=== PATIENT | male | born 1980 | race Caucasian/White ===

== ENCOUNTER 2017-02-27 20:07 | Inpatient (IN) ==
[2017-02-27 20:36] LABS: MANUAL DIFF NEEDED? NO
[2017-02-27 20:39] LABS: BASO% 0.4 % (0.0-0.8); EOS# 0.39 X1000 (0.0-0.7); HEMATOCRIT 41.8 % (42.0-52.0); HEMOGLOBIN 13.7 g/dL (14.0-18.0); IMM GRAN# 0.11 X1000 (0.0-0.04); IMM GRAN% 0.6 % (0.0-0.5); LYMPH# 2.95 X1000 (1.2-3.4); LYMPH% 14.9 % (20.5-51.1); MCH 29.6 PG (27-31); MCHC 32.8 g/dL (33-37); MCV 90.3 FL (81-99); MONO# 1.35 X1000 (0.11-0.59); MONO% 6.8 % (1.7-9.3); MPV 10.9 FL (7.4-10.4); NEUT% 75.3 % (42.2-75.2); PLT 267 X1000 (130-400); RBC 4.63 XMIL (4.7-6.1)
[2017-02-27 20:46] LABS: INR 0.99; PROTIME 10.4 Seconds (9.2-11.7); PTT 24.7 Seconds (22.0-36.0)
[2017-02-27 20:58] LABS: AGAP 10; ALBUMIN 3.6 g/dL (3.5-5.0); ALKALINE PHOSPHATASE 55 U/L (32-122); BUN 24 mg/dL (8-22); CALCIUM 9.3 mg/dL (8.8-10.2); CHLORIDE 100 mmol/L (98-107); CK PROFILE 90 U/L (24-204); COSMO 281; GOT 39 U/L (10-34); GPT 46 U/L (10-44); MAGNESIUM 1.9 mg/dL (1.5-2.7); POTASSIUM 4.5 mmol/L (3.5-5.1); SODIUM 138 mmol/L (136-145); TCO2 28 mmol/L (25-35); TOTAL BILIRUBIN 0.93 mg/dL (0.20-1.00)
[2017-02-27 22:15] LABS: URINE SOURCE VOIDED
[2017-02-27 22:26] LABS: BILIRUBIN URINE NEGATIVE (NEGATIVE); BLOOD URINE NEGATIVE (NEGATIVE); CLARITY CLEAR (CLEAR); COLOR YELLOW; GLUCOSE URINE NEGATIVE (NEGATIVE); LEUKOCYTES URINE NEGATIVE (NEGATIVE); NITRITE URINE NEGATIVE (NEGATIVE); PH URINE 5.5; PROTEIN URINE NEGATIVE (NEGATIVE); SP GRAVITY URINE 1.015; UROBILINOGEN URINE 0.2 EU/dL (0.2-1.0)
[2017-02-27 22:32] LABS: UR AMPHETAMINES QUAL NONE DETECTED (NONE DETECT); UR BARBITUATES QUAL NONE DETECTED (NONE DETECT); UR BENZODIAZEPIN QUAL NONE DETECTED (NONE DETECT); UR CANNABINOIDS QUAL NONE DETECTED (NONE DETECT); UR COCAINE QUAL NONE DETECTED (NONE DETECT); UR METHADONE QUAL NONE DETECTED (NONE DETECT); UR OPIATES QUAL NONE DETECTED (NONE DETECT); UR OXYCODONE QUAL NONE DETECTED (NONE DETECT); UR PCP QUAL NONE DETECTED (NONE DETECT)
[2017-02-27 22:36] LABS: URINE EPITHELIAL CELLS <10 /HPF (<10); URINE RBC <10 /HPF (<10); URINE WBC <10 /HPF (<10)
[2017-02-27] MEDS ORDERED: ROCEPHIN 2 GM/NS 2 GM/50 ML IVPB IV ONE (23:42)
[2017-02-27] MEDS ORDERED: NITROGLYCERIN TOP ONE (23:51)
[2017-02-28] MEDS ORDERED: LOPRESSOR IV ONE (00:02)
--- NOTE | 2017-02-28 00:48 | PROVIDER DOCUMENTATION ---
This chart was entered by Juana Yu Scribe, acting as scribe for Michele Jackson CRNP. HPI-Respiratory General - General Chief Complaint: Shortness of Breath Stated Complaint: SOB Time Seen by Provider: 02/27/17 22:07 Source: patient Allergies/Adverse Reactions: Patient Allergies Allergy/AdvReac Type Severity Reaction Status Date / Time No Known Allergies Allergy Verified 04/14/15 16:09 Home Medications: Home Medication List Medication Instructions Recorded Confirmed Last Taken Type Indomethacin 50 mg PO TID #30 capsule 04/14/15 Unknown Rx Methylprednisolone [Medrol Dosepak] 4 mg PO DIRECTED #1 package 04/14/15 Unknown Rx Omeprazole [Prilosec] 20 mg PO DAILY@0700 #20 capsule 04/14/15 Unknown Rx - History of Present Illness-Resp Nature of Presenting Problem: 36 year old M presents to the ED with a cc of intermittent SOB with an onset of 2 week ago. PT states that he is short of breath with exertion. PT states that he has had some chest tightness with the shortness of breath but denies tightness at this time. PT states that he was sent from [facility] with an abnormal EKG. PT states that he was seen 2 weeks ago and diagnosed with walking pneumonia and placed on antibiotics. Pt states that his blood pressure has been high for years and runs around 180 systolic. Quality of Pain: reports: aching Severity in ED: reports: mild Onset/Duration: reports: other (4 weeks) Timing: reports: intermittent Modifying Factors: worse with: exertion Associated Symptoms: reports: chest pain/soreness, shortness of breath Similar Symptoms Previously?: No Recently seen or treated by another doctor?: No Review of Systems - Adult - REVIEW OF SYSTEMS - ADULT Constitutional: denies: chills, fever Eyes: reports: no symptoms reported Ears, Nose, Mouth & Throat: reports: no symptoms reported Cardiovascular: reports: chest pain. denies: palpitations Respiratory: reports: dyspnea on exertion, shortness of breath. denies: cough Gastrointestinal: denies: nausea, vomiting Genitourinary: reports: no symptoms reported Musculoskeletal: reports: no symptoms reported Integumentary: reports: no symptoms reported Neurological: reports: no symptoms reported Psychiatric: reports: no symptoms reported Endocrine: reports: no symptoms reported Hematologic/Lymphatic: reports: no symptoms reported Allergic/Immunologic: reports: no symptoms reported All Other Systems: Reviewed and Negative Past History - Adult - PAST MEDICAL HISTORY-ADULT Review of Records: reports: Nursing Assessment Review, Medications Reviewed Major Childhood Illnesses: reports: denies history Cardiovascular: reports: denies history Respiratory: reports: denies history Gastrointestinal: reports: denies history Obstetrical/Gynecological: reports: denies history Genitourinary: reports: denies history Musculoskeletal: reports: arthritis (gout) Neurological: reports: denies history Endocrine/Immune: reports: denies history Other Conditions: reports: denies history - PRIOR SURGERIES/PROCEDURES Surgical/Procedure History: reports: tonsillectomy - IMMUNIZATION STATUS Childhood Immunizations: See Nurse Assessment Flu Vaccine: See Nurse Assessment - FAMILY HISTORY Family History: reviewed, not pertinent - SOCIAL HISTORY Smoking: cigarettes Provider spent 3-5 mins advising pt. on dangers of tobacco.: Discussed manners to quit use, and f/u contacts for add'l counseling. Substance Use: none/never Alcohol Use Frequency: occasionally Physical Exam-General - PHYSICAL EXAM-ADULT Initial Vital Signs Reviewed: Yes - CONSTITUTIONAL General Appearance: alert, mild distress, anxious - RESPIRATORY Respiratory: chest non-tender, lungs clear, normal breath sounds, increased rate - CARDIOVASCULAR Cardiovascular: normal peripheral pulses, regular rate, rhythm, no edema - GASTROINTESTINAL (ABDOMEN) Abdominal Exam: non tender, soft - SKIN Integumentary: normal color, normal turgor, warm/dry - PSYCHIATRIC Psych/Mental Status: normal mood/affect, normal thought content, normal thought process, oriented x 3 Progress - PLAN OF CARE/RESULTS Progress/Plan/Lab Results: Vital Signs - 8 hr 02/27/17 20:21 02/27/17 22:48 02/28/17 00:19 Temperature 98.2 F Pulse Rate 118 H 115 H 119 H Respiratory Rate 20 22 24 Blood Pressure 183/125 228/157 216/157 O2 Sat by Pulse Oximetry 93 L 96 02/28/17 00:46 Temperature Pulse Rate 103 H Respiratory Rate 18 Blood Pressure 195/144 O2 Sat by Pulse Oximetry 100 Laboratory Results - last 24 hr 02/27/17 02/27/17 02/27/17 20:20 20:20 20:20 WBC 19.85 H RBC 4.63 L Hgb 13.7 L Hct 41.8 L MCV 90.3 MCH 29.6 MCHC 32.8 L RDW Std Deviation 14.0 Plt Count 267 MPV 10.9 H Immature Gran % (Auto) 0.6 H Neut % (Auto) 75.3 H Lymph % (Auto) 14.9 L [place] % (Auto) 6.8 Eos % (Auto) 2.0 Baso % (Auto) 0.4 Immature Gran # (Auto) 0.11 H Neut # (Auto) 14.97 H Lymph # (Auto) 2.95 [place] # (Auto) 1.35 H Eos # (Auto) 0.39 Baso # (Auto) 0.08 PT INR PTT (Actin FS) D-Dimer 0.32 Sodium 138 Potassium 4.5 Chloride 100 Carbon Dioxide 28 Anion Gap 10 BUN 24 H Creatinine 1.2 Estimated GFR/1.73 m2 > 60 BUN/Creatinine Ratio 20 Glucose 125 H Calculated Osmolality 281 Calcium 9.3 Magnesium 1.9 Total Bilirubin 0.93 AST 39 H ALT 46 H Alkaline Phosphatase 55 Creatine Kinase 90 Troponin T Plf-Z-Eiknbxhdltn Pept Total Protein 6.0 L Albumin 3.6 Globulin 2.4 Albumin/Globulin Ratio 1.5 Urine Source Urine Color Urine Clarity Urine Turbidity Urine pH Ur Specific [place] Urine Protein Ur Glucose (Stick) Urine Ketones Ur Ketones (Stick) Urine Blood Urine Nitrite Urine Bilirubin Urine Urobilinogen Urobilinogen Dipstick Urine Leukocytes Urine WBC (Auto) Urine RBC (Auto) U Epithel Cells (Auto) Urine Bacteria (Auto) Urine Microscopic RBC Urine WBC Urine Microscopic WBC Ur Epithelial Cells Urine Glucose Urine Opiates Screen Ur Oxycodone Screen Ur Methadone, Qual Ur Barbiturates Screen Ur Phencyclidine Scrn Ur Amphetamines Screen U Benzodiazepines Scrn Urine Cocaine Screen U Cannabinoids Screen 02/27/17 02/27/17 02/27/17 20:20 20:20 20:20 WBC RBC Hgb Hct MCV MCH MCHC RDW Std Deviation Plt Count MPV Immature Gran % (Auto) Neut % (Auto) Lymph % (Auto) [place] % (Auto) Eos % (Auto) Baso % (Auto) Immature Gran # (Auto) Neut # (Auto) Lymph # (Auto) [place] # (Auto) Eos # (Auto) Baso # (Auto) PT 10.4 INR 0.99 PTT (Actin FS) 24.7 D-Dimer Sodium Potassium Chloride Carbon Dioxide Anion Gap BUN Creatinine Estimated GFR/1.73 m2 BUN/Creatinine Ratio Glucose Calculated Osmolality Calcium Magnesium Total Bilirubin AST ALT Alkaline Phosphatase Creatine Kinase Troponin T 0.140 H [id number]-B-Hjvyjtjwgdu Pept 2092 H Total Protein Albumin Globulin Albumin/Globulin Ratio Urine Source Urine Color Urine Clarity Urine Turbidity Urine pH Ur Specific [place] Urine Protein Ur Glucose (Stick) Urine Ketones Ur Ketones (Stick) Urine Blood Urine Nitrite Urine Bilirubin Urine Urobilinogen Urobilinogen Dipstick Urine Leukocytes Urine WBC (Auto) Urine RBC (Auto) U Epithel Cells (Auto) Urine Bacteria (Auto) Urine Microscopic RBC Urine WBC Urine Microscopic WBC Ur Epithelial Cells Urine Glucose Urine Opiates Screen Ur Oxycodone Screen Ur Methadone, Qual Ur Barbiturates Screen Ur Phencyclidine Scrn Ur Amphetamines Screen U Benzodiazepines Scrn Urine Cocaine Screen U Cannabinoids Screen 02/27/17 02/27/17 02/27/17 21:50 21:50 22:00 WBC RBC Hgb Hct MCV MCH MCHC RDW Std Deviation Plt Count MPV Immature Gran % (Auto) Neut % (Auto) Lymph % (Auto) [place] % (Auto) Eos % (Auto) Baso % (Auto) Immature Gran # (Auto) Neut # (Auto) Lymph # (Auto) [place] # (Auto) Eos # (Auto) Baso # (Auto) PT INR PTT (Actin FS) D-Dimer Sodium Potassium Chloride Carbon Dioxide Anion Gap BUN Creatinine Estimated GFR/1.73 m2 BUN/Creatinine Ratio Glucose Calculated Osmolality Calcium Magnesium Total Bilirubin AST ALT Alkaline Phosphatase Creatine Kinase Troponin T Fab-E-Chiqvyogkdq Pept Total Protein Albumin Globulin Albumin/Globulin Ratio Urine Source Cancelled VOIDED Urine Color Cancelled YELLOW Urine Clarity CLEAR Urine Turbidity Cancelled Urine pH Cancelled 5.5 Ur Specific [place] Cancelled 1.015 Urine Protein Cancelled NEGATIVE Ur Glucose (Stick) Cancelled Urine Ketones NEGATIVE Ur Ketones (Stick) Cancelled Urine Blood Cancelled NEGATIVE Urine Nitrite Cancelled NEGATIVE Urine Bilirubin Cancelled NEGATIVE Urine Urobilinogen 0.2 Urobilinogen Dipstick Cancelled Urine Leukocytes Cancelled Urine WBC (Auto) Cancelled Urine RBC (Auto) Cancelled U Epithel Cells (Auto) Cancelled Urine Bacteria (Auto) Cancelled Urine Microscopic RBC <10 Urine WBC NEGATIVE Urine Microscopic WBC <10 Ur Epithelial Cells <10 Urine Glucose NEGATIVE Urine Opiates Screen NONE DETECTED Ur Oxycodone Screen NONE DETECTED Ur Methadone, Qual NONE DETECTED Ur Barbiturates Screen NONE DETECTED Ur Phencyclidine Scrn NONE DETECTED Ur Amphetamines Screen NONE DETECTED U Benzodiazepines Scrn NONE DETECTED Urine Cocaine Screen NONE DETECTED U Cannabinoids Screen NONE DETECTED 02/27/17 02/27/17 22:24 22:24 WBC RBC Hgb Hct MCV MCH MCHC RDW Std Deviation Plt Count MPV Immature Gran % (Auto) Neut % (Auto) Lymph % (Auto) [place] % (Auto) Eos % (Auto) Baso % (Auto) Immature Gran # (Auto) Neut # (Auto) Lymph # (Auto) [place] # (Auto) Eos # (Auto) Baso # (Auto) PT INR PTT (Actin FS) D-Dimer Sodium Potassium Chloride Carbon Dioxide Anion Gap BUN Creatinine Estimated GFR/1.73 m2 BUN/Creatinine Ratio Glucose Calculated Osmolality Calcium Magnesium Total Bilirubin AST ALT Alkaline Phosphatase Creatine Kinase 89 Troponin T 0.128 H Ywe-Y-Gsakcmxqbkq Pept Total Protein Albumin Globulin Albumin/Globulin Ratio Urine Source Urine Color Urine Clarity Urine Turbidity Urine pH Ur Specific [place] Urine Protein Ur Glucose (Stick) Urine Ketones Ur Ketones (Stick) Urine Blood Urine Nitrite Urine Bilirubin Urine Urobilinogen Urobilinogen Dipstick Urine Leukocytes Urine WBC (Auto) Urine RBC (Auto) U Epithel Cells (Auto) Urine Bacteria (Auto) Urine Microscopic RBC Urine WBC Urine Microscopic WBC Ur Epithelial Cells Urine Glucose Urine Opiates Screen Ur Oxycodone Screen Ur Methadone, Qual Ur Barbiturates Screen Ur Phencyclidine Scrn Ur Amphetamines Screen U Benzodiazepines Scrn Urine Cocaine Screen U Cannabinoids Screen Orders Category Date Time Status CHEST-2 VIEWS [RAD] Stat Exams 02/27/17 22:20 Taken BLOOD CULTURE [BLDCUL] Stat Lab 02/28/17 00:05 Ordered CBC WITH ELECTRONIC DIFF [HEME] Stat Lab 02/27/17 20:20 Completed CK PROFILE [SP CHEM] Stat Lab 02/27/17 20:20 Completed CK PROFILE [SP CHEM] Stat Lab 02/27/17 22:24 Completed COMPREHENSIVE METABOLIC PANEL [CHEM] Stat Lab 02/27/17 20:20 Completed D-DIMER [CHEM] Stat Lab 02/27/17 20:20 Completed MAGNESIUM [CHEM] Stat Lab 02/27/17 20:20 Completed PRO B-NATRIURETIC PEPTIDE Stat Lab 02/27/17 20:20 Completed PROTIME WITH INR [COAG] Stat Lab 02/27/17 20:20 Completed PTT [COAG] Stat Lab 02/27/17 20:20 Completed TROPONIN T Stat Lab 02/27/17 20:20 Completed TROPONIN T Stat Lab 02/27/17 22:24 Completed UDS [URINE DRUG SCREEN] Stat Lab 02/27/17 21:50 Completed CefTRIAXONE 2 GM/NS [Rocephin 2 gm/Ns] Med 02/27/17 23:42 Discontinued 2 gm in 50 ml IV NOW Metoprolol [Lopressor] Med 02/28/17 00:02 Discontinued 5 mg IV NOW ONE Nitroglycerin Med 02/27/17 23:51 Discontinued 1 inch TOP NOW ONE EKG [EKG] Stat Ther 02/27/17 20:20 Ordered EKG [EKG] Stat Ther 02/27/17 22:19 Ordered Result Diagrams: 02/27/17 20:20 02/27/17 20:20 - EKG 1 Time of EKG reading by physician:: 20:17 EKG Read and Signed by:: Hever Adams EKG Interpretation (*Must complete 3 of following elements*): Abnormal Rate: 118 Rhythm: Sinus tachycardia [place]: normal Comments: biatrial enlargement 2 Time of EKG reading by physician:: 22:27 EKG Read and Signed by:: Hever Adams EKG Interpretation (*Must complete 3 of following elements*): Abnormal Rate: 117 Rhythm: sinus tachycardia [place]: normal Comments: biatrial enlargement - XRAY 1 XRAY Study: Chest Impression: Abnormal XRAY Interpretation: cardiomegally, elevated right hemidiaphragm: Dr Adams( ER MD) - CONSULTS/PCP/HOSPITALIST Notification #1 *Consult/PCP/Hospitalist*: Dr. Ackerman(hypercil core transformer assembler) Time Discussed: 23:41 Reason/Comments: elevated troponin Consult Disposition: Admit (admit to hospitalist and schedule an echo in the morning) #2 Consult: Dr. Welch(hospitalist) Time Discussed: 23:48 Consult Disposition: Will see in ED, Admit Departure - Departure Time of Disposition Decision: 00:15 DIAGNOSIS: Chest pain Qualifiers: Chest pain type: chest pain due to myocardial ischemia Ischemic chest pain type : unstable angina pectoris Qualified Code(s): I20.0 - Unstable angina CHF (congestive heart failure) Qualifiers: Congestive heart failure type: unspecified congestive heart failure type Congestive heart failure chronicity: acute Qualified Code(s): I50.9 - Heart failure, unspecified Pneumonia Qualifiers: Pneumonia type: due to unspecified organism Laterality: right Lung location: unspecified part of lung Qualified Code(s): J18.9 - Pneumonia, unspecified organism Disposition: ADMITTED INPATIENT 09 Certified Medical Emergency: Emergent Condition: Stable Referrals and Follow-Ups: None,PCP [Primary Care Provider] - Attestation - Physician/ SKY Attestation Patient care was provided by Advanced Practice Provider:: Yes Advanced Practice Provider:: Michele Jackson Advanced Practice Provider documentation review:: The Mid-level provider documentation, treatment plan and medical decision making was reviewed by the physician who agrees with all treatment and medical decision making by the MLP. This chart was documented by the indicated scribe, (Juana Yu Scribe) and accurately reflects the services I performed and decisions made by Manuel minaya Joseph A., CRNP, as attested by the provider's signature.
[2017-02-28] MEDS ORDERED: LASIX IV ONE (01:01)
[2017-02-28] MEDS ORDERED: LABETALOL IV ONE (01:03)
[2017-02-28] MEDS ORDERED: LABETALOL IV PRN (01:03)
[2017-02-28] MEDS ORDERED: TYLENOL PO PRN (01:05)
[2017-02-28] MEDS ORDERED: ZOFRAN IV PRN (01:05)
[2017-02-28] MEDS ORDERED: NITROGLYCERIN TOP SCH (01:15)
[2017-02-28] MEDS ORDERED: LOVENOX SUBQ SCH (01:15)
--- NOTE | 2017-02-28 05:09 | HISTORY AND PHYSICAL ---
CHIEF COMPLAINT: Shortness of breath. HISTORY OF PRESENT ILLNESS: This is a 36-year-old male with a past medical history of schizophrenia who presented to the emergency room tonight with chest tightness and shortness of breath with exertion. He denied overt chest pain but he said that it did hurt when it was tight related to the shortness of breath. He had been recently treated for "walking pneumonia" with antibiotics from [facility]. He states that he has had high blood pressure for years with a systolic blood pressure of 180 or greater but does not take any medications. He had laboratory data done in the emergency room and was noted to have an elevated white blood cell count with a white blood cell count of 19.85. However, he stated that he just had completed a Medrol Dosepak. This is possibly the cause of the leukocytosis. A chest x-ray was obtained which showed cardiomegaly and an elevated right hemidiaphragm. He does not appear to have an infectious source at this time. However, his blood pressure in the emergency room has been as high as 228/157. He will be admitted for further evaluation and treatment. PAST MEDICAL HISTORY: Schizophrenia, hypertension untreated with a systolic blood pressure usually of 180 or greater. PREVIOUS SURGICAL HISTORY: Tonsillectomy. SOCIAL HISTORY: Lives alone half of the month, keeps his son every other week. He is disabled related to his schizophrenia. Smokes 1 pack of cigarettes per day. Smoking cessation was gone over with the patient. He does not want to quit. He denies alcohol or illicit drug use or abuse. FAMILY HISTORY: Mother has lymphoma cancer. Father has had a myocardial infarction and has hypertension. REVIEW OF SYSTEMS: Fourteen point review of systems conducted with the patient. Pertinent positives listed above in the HPI. All other systems were reviewed and are negative. HOME MEDICATIONS: Nursing to reconcile list in computer for me. PHYSICAL EXAMINATION: VITAL SIGNS: Temperature 98.2 degrees, pulse 103-120, sinus tachycardia. Blood pressure as high as 228/157. Oxygen saturation 96% on room air. GENERAL: Pleasant, 36-year-old male lying on the ER stretcher. No acute distress. Answers all questions appropriately. HEENT: Head is atraumatic, normocephalic. Pupils equal, round, reactive to light. Extraocular eye movement intact. Sclerae are anicteric. Conjunctivae are pink. Oral mucosa is moist. NECK: Supple. No JVD. No thyromegaly. Trachea is midline. No cervical lymphadenopathy. CARDIAC: Regular rhythm. Sinus tachycardia on monitor. S1 and S2 appreciated. No murmurs, gallops, rubs. LUNGS: Clear to auscultation bilaterally. No rhonchi, wheezes, or rales. Symmetrical rise and fall with respirations. ABDOMEN: Soft, nondistended, nontender. Bowel sounds present in all 4 quadrants, normoactive. No pulsatile mass. No organomegaly. EXTREMITIES: No clubbing or cyanosis. There is 1+ pitting lower extremity edema. There are 2+ pedal pulses bilaterally. GENITOURINARY: Patient voids, otherwise deferred. NEUROLOGICAL: Alert and oriented x3. Cranial nerves 2-12 grossly intact. DIAGNOSTIC DATA: Chest x-ray shows cardiomegaly and elevated right hemidiaphragm. LABORATORY DATA: WBC 19.85, hemoglobin 13.7, hematocrit 41.8, platelet count 267,000. Coagulations within normal limits. D-dimer 0.32. Sodium 138, potassium 4.5, chloride 100, carbon dioxide 28, BUN 24, creatinine 1.2, and glucose 125. AST 39, ALT 46. Troponin 0.14. Upon recheck was 0.128. ProBNP 2092. Urine unremarkable. Toxicology screen is negative. ASSESSMENT AND PLAN: 1. Uncontrolled hypertension. Placed a nitroglycerin patch on patient in the emergency room, 1 inch topically. Gave labetalol 20 mg intravenous, will repeat every 4 hours as needed. I gave Lasix 40 mg intravenous x1 dose in the emergency room. 2. Gout. The patient is on indomethacin and has received a Medrol Dosepak recently. 3. Leukocytosis of unclear etiology. There does not appear to be an infectious process going on. He did receive 2 g of Rocephin in the emergency room. Blood cultures have been obtained. The patient also appears to have a chronically elevated WBC as he had another white blood cell count that was over 15,000 two years ago. We will monitor this but will not give additional antibiotics at this time. 4. Transaminitis. This could be related to differentials. 5. Schizophrenia. Patient says that he takes medication for this. However, was not listed in his home medications. However, a list has not been fully reconciled by the nurses. An order has been placed for nursing to reconcile home medications. 6. Tobacco use. Smoking cessation gone over with the patient. He does not want to quit at this time. Patient seen and examined. Agree with HENRRY note. It reflects my assessment and plan. It is important to remark that this patient is being admitted for uncontrolled hypertension but unfortunately while in the E.R. patient did not received ANY medication to try to lower blood pressure but instead we were called for admission. Dictated by HENRRY Bender for Mani Fragoso MD cc: HENRRY Bender MD MTDD
--- NOTE | 2017-02-28 05:22 | EKG Report ---
Test Performed on : 02/27/2017 8:17:51 PM Test Reason : CP Blood Pressure : / mmHG Vent. Rate : 118 BPM Atrial Rate : 118 BPM P-R Int : 132 ms QRS Dur : 088 ms QT Int : 336 ms P-R-T Axes : 060 025 057 degrees QTc Int : 470 ms Sinus tachycardia. Biatrial enlargement Abnormal ECG No previous ECGs available Unconfirmed Result
--- NOTE | 2017-02-28 05:22 | EKG Report ---
Test Performed on : 02/27/2017 10:27:20 PM Test Reason : SOB Blood Pressure : / mmHG Vent. Rate : 117 BPM Atrial Rate : 117 BPM P-R Int : 132 ms QRS Dur : 088 ms QT Int : 330 ms P-R-T Axes : 054 013 056 degrees QTc Int : 460 ms Sinus tachycardia. Biatrial enlargement Abnormal ECG When compared with ECG of 27-FEB-2017 20:17, (Unconfirmed) No significant change was found Unconfirmed Result
[2017-02-28] MEDS ORDERED: PRILOSEC PO SCH (07:00)
--- NOTE | 2017-02-28 08:19 | Diag Imaging Result Document ---
PROCEDURE NAME: CHEST-2 VIEWS - 02/27/2017 FRONTAL AND LATERAL CHEST, TWO VIEWS: FINDINGS: The lungs are well expanded. The right hemidiaphragm is elevated. The heart is enlarged. The vessels are not distended. No pneumonia. No pleural effusions. No free air beneath the diaphragm. IMPRESSION: Cardiomegaly.
[2017-02-28] MEDS ORDERED: ASPIRIN PO SCH (09:00)
[2017-02-28 09:29] VITALS: BP 188/135
--- NOTE | 2017-02-28 10:19 | Diag Imaging Result Document ---
PROCEDURE NAME: CT THORAX W/O CONTRAST - 02/28/2017 CT OF THE CHEST WITHOUT CONTRAST: FINDINGS: There is minimal atelectasis over the right hemidiaphragm. Possibility of mild bronchopneumonia cannot be excluded. There are small nodes in the mediastinum superiorly particularly in the prevascular space where there is 1 node measuring up to 17 mm. There are some fairly prominent right paratracheal and AP window nodes, some of which have her short axis exceeding 1 cm. There is a somewhat dense-appearing fluid in the pericardial recesses exceeding 14 Hounsfield units. Anterior to the right ventricle this measures only 5 mm in thickness. No acute abnormalities are demonstrated in the visualized portion of the abdomen. IMPRESSION: 1. Right lower lobe atelectasis versus pneumonia. 2. Mediastinal adenopathy. 3. Pericardial effusion which is slightly hyperdense suggesting the possibility of pericarditis with or without hemorrhage. The findings were discussed with Mimi Abreu at 0954 hours.
[2017-02-28] MEDS ORDERED: COLCRYS PO ONE (10:23)
[2017-02-28] MEDS ORDERED: MOTRIN PO SCH (13:00)
--- NOTE | 2017-02-28 13:42 | ECHO REPORT ---
ORDER DATE: 02/28/2017 MEASUREMENTS: 1. Left ventricular end diastolic diameter 4.3, end systolic diameter 3.4. 2. Posterior wall thickness 2.9. 3. Septal thickness 2.9. 4. Left atrium 4.8 SUMMARY OF 2D IMAGIN. Adequate quality acoustic windows. 2. Aortic, mitral, tricuspid, and pulmonic valves are without structural abnormality with mild mitral regurgitation, mild tricuspid regurgitation, and mild pulmonic insufficiency. The aortic root is normal in size. 3. Normal left ventricular chamber size with severe concentric left hypertrophy. Estimated left ventricular ejection fraction approximately 30% in the setting of global hypokinesis. Left atrium is moderately enlarged. Right atrium and right ventricle are of normal size with grossly preserved right ventricular systolic performance. 4. Small posterior pericardial effusion. 5. Appearance of inferior vena cava suggests normal central venous pressure. CONCLUSIONS: 1. Mild mitral regurgitation. 2. Mild tricuspid regurgitation. Estimated systolic PA pressure by Doppler is 50 mmHg. 3. Severe concentric left ventricular hypertrophy with estimated left ventricular ejection fraction of 30%. 4. Moderate left atrial enlargement. 5. Small posterior pericardial effusion. cc: MD Ramo Berg CRNP
--- NOTE | 2017-02-28 15:58 | CONSULTATION ---
DATE OF CONSULTATION: 02/28/2017 CHIEF COMPLAINT: Chest pain, shortness of breath. HISTORY: Sqgafl-xkta-kubv-old white male. HISTORY OF PRESENT ILLNESS: Patient presented to the Emergency Room complaining of shortness of breath and chest discomfort that started yesterday. This has been going on for two or three days. He went to [facility] yesterday, and they told him that he had a "walking pneumonia". His blood pressure was 228/157. The patient noted some sternal chest discomfort. The patient was really anxious and trying to leave the hospital; however, he agreed to stay for some testing. PAST MEDICAL HISTORY: His past history is positive for schizophrenia and hypertension. PREVIOUS SURGICAL HISTORY: Tonsillectomy. SOCIAL HISTORY: He is single. He is disabled. He smokes a pack a day for 15 years. He has not been using any alcohol or illicit drugs. FAMILY HISTORY: Mother had lymphoma. Father had hypertension, myocardial infarction. He is not allergic to any medication. HOME MEDICATIONS: Not reported. REVIEW OF SYSTEMS: His review of systems is noncontributory beyond on what I have already said. PHYSICAL EXAMINATION: Vital signs: Blood pressure 188/135, pulse 94, respirations 20, temperature 98.7. General: He is awake, alert, oriented, in no distress. HEENT: Unremarkable. Chest: Fairly clear to auscultation and percussion. Cardiac: Heart sounds are regular and rhythmic. No definite rub. No gallop. Abdomen: Obese. Extremities: No edema. Neurological exam: Moves four extremities. BLOOD WORK: Sodium 138, potassium 4.5, BUN 24, creatinine 1.2. Liver function tests normal. D- dimer is negative. Sedimentation rate 2. C-reactive protein borderline elevated. ProBNP 2092. Troponin levels 0.140, 0.128, 0.113. Electrocardiogram shows sinus tachycardia without any acute ischemic changes. There is no definite ST elevation. There is some atrial abnormality. That would be consistent with LVH. There is questionable UT depression in lead II. It is very subtle. A 2D echocardiogram has been done. It shows a very trivial pericardial effusion. Normal systolic function, ejection fraction of 55%. There is diastolic dysfunction. There is severe concentric LVH. A CT of the thorax has been done; it shows a pericardial effusion with some loculation at the level of the right atrium consistent with pericarditis. Possible infiltrate suggests a pneumonia. IMPRESSION: 1. Patient presenting with dyspnea and chest discomfort with elevation of troponin levels, abnormal EKG, abnormal echocardiogram, abnormal CT scan of the chest. Putting everything together, the patient may have a case of acute pleuropericarditis. 2. History of schizophrenia. 3. Long-term hypertension, poorly controlled. RECOMMENDATIONS: The patient has been advised to stay in the hospital for management. He has refused to stay in the hospital. He wants to leave against medical advice. We did the best to convey to him the necessity to treat him in the hospital. However, he decided to leave anyway. He will seek medical care outside. Thank you for opportunity to participate in his evaluation. cc: Wicho Ridley MD MTDD
== END 2017-02-28 10:41 | disposition left against medical advice (07) ==
LOC: ED 20:07 → SUATTDRO 02-28 02:09 → EDIPHOLD 02-28 02:09
PROVIDERS: ATTEND Internal Medicine

== ENCOUNTER 2019-07-31 13:41 | Observation (INO) ==
[2019-07-31] MEDS ORDERED: HUMULIN R IV ONE ×2 (13:53→19:03)
[2019-07-31] MEDS ORDERED: NS 1,000 ML IV ONE ×2 (13:53→15:35)
--- NOTE | 2019-07-31 14:12 | PROVIDER DOCUMENTATION ---
HPI-General Adult - General Chief Complaint: Abnormal Lab[s] Stated Complaint: ABNORMAL LAB Time Seen by Provider: 07/31/19 13:59 Source: patient Allergies/Adverse Reactions: Patient Allergies Allergy/AdvReac Type Severity Reaction Status Date / Time No Known Allergies Allergy Verified 07/31/19 15:29 Home Medications: Home Medication List Medication Instructions Recorded Confirmed Last Taken Type Carvedilol 1 tab PO BID 01/13/18 07/31/19 07/30/19 History Sacubitril/Valsartan [Entresto 49 1 each PO BID 01/13/18 07/31/19 07/30/19 History mg-51 mg Tablet] Spironolactone 1 tab PO DAILY 01/13/18 07/31/19 07/30/19 History Amoxicillin/Pot Clavulanate 1 tab PO BID 07/31/19 07/31/19 07/31/19 History [Augmentin] Lisdexamfetamine Dimesylate 1 tab PO DAILY 07/31/19 07/31/19 07/31/19 History [Vyvanse] Ondansetron [Zofran] 1 tab PO PRN PRN 07/31/19 07/31/19 07/31/19 History Benzonatate [Tessalon] 200 mg PO TID PRN PRN #15 cap 08/01/19 Unknown Rx Insulin Glargine,Hum.rec.anlog 15 unit SQ QAM #1 insuln.pen 08/01/19 Unknown Rx [Lantus Solostar] Metformin [Glucophage] 500 mg PO BID CC #90 tab 08/01/19 Unknown Rx - History of Present Illness -Gen Adult Nature of Presenting Problems: 39 YO M pmh for HTN presents from urgent care for abnormal labs, being glucose and sodium. He states he had been feeling sick for the past 2 weeks with increased thirst. He had been drinking two 2 liters of soda daily with a gallon of milk. He has an upset stomach with decreased appetite. He also c/o cough. Pt states when he first went to urgent care 2 weeks ago, they gave him abx but he did not improve. He went back on today and he was told he had abnormal labs and was sent here to the ED. For the past few days he had n/v but it has been improving. Denies dysuria, hematuria. He had BM today that was normal. He does not have a known hx of DM. Location of Pain/Injury: reports: none Quality of Pain: reports: none Onset/Duration: reports: 1 week ago Timing: reports: still present Modifying Factors: improves with: nothing Associated Symptoms: reports: cough, dizziness, nausea, weakness Similar Symptoms Previously?: Yes Recently seen or treated by another doctor?: Yes (seen at urgent care) - Diabetes Related Context Context: reports: high blood sugar Review of Systems - Adult - REVIEW OF SYSTEMS - ADULT Constitutional: reports: fatique. denies: fever Eyes: reports: no symptoms reported Ears, Nose, Mouth & Throat: reports: no symptoms reported Cardiovascular: denies: chest pain, edema, palpitations, syncope Respiratory: denies: cough, shortness of breath, wheezing Gastrointestinal: reports: nausea. denies: abdominal pain, vomiting Genitourinary: reports: frequency. denies: dysuria, flank pain Musculoskeletal: reports: no symptoms reported Integumentary: reports: no symptoms reported Neurological: denies: dizziness/vertigo, loss of balance, numbness, syncope Endocrine: reports: see HPI, increased thirst, polyuria. denies: change in skin pigment, excessive sweating Hematologic/Lymphatic: denies: blood clots, low blood count, prolonged bleeding Allergic/Immunologic: reports: no symptoms reported Past History - Adult - PAST MEDICAL HISTORY-ADULT Review of Records: reports: Old Records Reviewed, Nursing Assessment Review, Medications Reviewed Major Childhood Illnesses: reports: denies history Cardiovascular: reports: denies history Respiratory: reports: denies history Gastrointestinal: reports: denies history Obstetrical/Gynecological: reports: denies history Genitourinary: reports: denies history Musculoskeletal: reports: arthritis (gout) Neurological: reports: denies history Endocrine/Immune: reports: denies history Other Conditions: reports: denies history - PRIOR SURGERIES/PROCEDURES Surgical/Procedure History: reports: tonsillectomy - IMMUNIZATION STATUS Childhood Immunizations: See Nurse Assessment Flu Vaccine: See Nurse Assessment - FAMILY HISTORY Family History: reviewed, not pertinent - SOCIAL HISTORY Smoking: cigarettes Substance Use: denies Physical Exam-General - PHYSICAL EXAM-ADULT Initial Vital Signs Reviewed: Yes - CONSTITUTIONAL General Appearance: no apparent distress, obese - EYES Eyes: PERRL/EOMI, pink conjunctivae - HEAD, EARS, NOSE, MOUTH & THROAT HENMT: normocephalic/atraumatic, moist mucous membranes, other (missing teeth, poor dentition) - NECK Neck: full range of motion, supple - RESPIRATORY Respiratory: lungs clear, normal breath sounds, no respiratory distress, no accessory muscle use - CARDIOVASCULAR Cardiovascular: tachycardia - GASTROINTESTINAL (ABDOMEN) Abdominal Exam: soft. negative: distended, hernia, mass - MUSCULOSKELETAL Extremity: normal range of motion, normal gait, no pedal edema - SKIN Integumentary: warm/dry - NEUROLOGIC Neurologic: grossly normal, no motor/sensory deficits - PSYCHIATRIC Psych/Mental Status: normal mood/affect, oriented x 3 Progress - PLAN OF CARE/RESULTS Progress/Plan/Lab Results: Vital Signs - 8 hr 07/31/19 13:49 Temperature 98.5 F Pulse Rate 117 H Respiratory Rate 22 Blood Pressure 138/106 O2 Sat by Pulse Oximetry 96 Laboratory Results - last 24 hr 07/31/19 13:48 POC Glucose 358 H Orders Category Date Time Status Saline Loc NOW Care 07/31/19 13:52 Active A1C [A1C HGB W EST AVG GLUCOSE] [CHEM] Stat Lab 07/31/19 14:09 Ordered ACETONE SERUM [CHEM] Stat Lab 07/31/19 14:09 Ordered CBC WITH ELECTRONIC DIFF [HEME] Stat Lab 07/31/19 14:09 Ordered COMPREHENSIVE METABOLIC PANEL [CHEM] Stat Lab 07/31/19 14:09 Ordered URINALYSIS W/POSS RFLX CULT [URINALYSIS] Stat Lab 07/31/19 13:52 Uncollected 0.9% Sodium Chloride Inj [Ns] 1,000 ml Med 07/31/19 13:53 Active IV 999 mls/hr Insulin Human Regular [Humulin R] Med 07/31/19 13:53 Discontinued 10 unit IV NOW ONE Result Diagrams: 08/01/19 06:40 08/01/19 06:40 - REASSESSMENT Reassessment #1 Time Reassessed: 18:11 Status: unchanged (hospitalist paged at 1800) - EKG 1 Time of EKG reading by physician:: 15:45 EKG Read and Signed by:: Beata Garsia EKG Interpretation (*Must complete 3 of following elements*): Abnormal Rate: 99 Rhythm: NSR [place]: normal QRS: normal [place] Interval: normal (left atrial enlargement) Prior EKG Comparison: changes noted (improved from previous, Dec 2017) - CONSULTS/PCP/HOSPITALIST Notification #1 *Consult/PCP/Hospitalist*: Dr. Mcfarland Time Discussed: 18:18 Consult Disposition: Will see in ED Departure - Departure Date of Disposition Decision: 07/31/19 Time of Disposition Decision: 18:14 DIAGNOSIS: Hyperglycemia, Metabolic acidosis, increased anion gap, New onset type 2 diabetes mellitus Disposition: ADMITTED INPATIENT 09 Certified Medical Emergency: Emergent Condition: Stable - Critical Care Note This patient required my direct & personal management of CC.: No Attestation - Physician/ SKY Attestation The physician spent face to face time with patient:: Yes Advanced Practice Provider documentation review:: Supervising physician onsite and consulted in the evaluation and care of this patient. The physician did have a face to face encounter with the patient.
[2019-07-31 14:22] LABS: BASO# 0.12 X1000 (0.0-0.2); BASO% 0.7 % (0.0-0.8); EOS# 0.51 X1000 (0.0-0.7); HEMATOCRIT 48.1 % (42.0-52.0); HEMOGLOBIN 16.9 g/dL (14.0-18.0); IMM GRAN# 0.06 X1000 (0.0-0.04); IMM GRAN% 0.4 % (0.0-0.5); LYMPH# 3.48 X1000 (1.2-3.4); LYMPH% 20.4 % (20.5-51.1); MCH 29.2 PG (27-31); MCHC 35.1 g/dL (33-37); MCV 83.1 FL (81-99); MONO# 1.16 X1000 (0.11-0.59); MONO% 6.8 % (1.7-9.3); MPV 12.3 FL (7.4-10.4); NEUT# 11.73 X1000 (1.4-6.5); NEUT% 68.7 % (42.2-75.2); PLT 287 X1000 (130-400); RBC 5.79 XMIL (4.7-6.1); RDW 12.4 % (11.5-14.5); WBC 17.06 X1000 (4.8-10.8)
[2019-07-31 14:34] LABS: HEMOGLOBIN A1C 9.3 % (4.8-6.0)
[2019-07-31 14:37] LABS: ACETONE SERUM NEGATIVE (NEGATIVE)
[2019-07-31 14:38] LABS: URINE SOURCE CLEAN CATCH
[2019-07-31 14:39] LABS: BILIRUBIN URINE NEGATIVE (NEGATIVE); BLOOD URINE NEGATIVE (NEGATIVE); COLOR YELLOW; GLUCOSE URINE >1000 mg/dL (NEGATIVE); KETONE URINE NEGATIVE (NEGATIVE); LEUKOCYTES URINE NEGATIVE (NEGATIVE); NITRITE URINE NEGATIVE (NEGATIVE); PROTEIN URINE TRACE mg/dL (NEGATIVE); TURBIDITY URINE CLEAR (CLEAR); UROBILINOGEN URINE NORMAL (NORMAL)
[2019-07-31 14:40] LABS: UR EPITHELIAL CELLS <10 /HPF (<10); URINE BACTERIA NEGATIVE /HPF; URINE RBC <10 /HPF (<10); URINE WBC <10 /HPF (<10)
--- NOTE | 2019-07-31 14:45 | Diag Imaging Result Doc PS360 ---
EXAM: CHEST-2 VIEWS 07/31/2019 HISTORY: cough TECHNIQUE: PA and lateral chest COMMENT: There is no evidence of acute cardiac or pulmonary disease. The heart size appears smaller than on 01/13/2018 and the lungs are better expanded. IMPRESSION: No acute disease. Electronically signed by Peter Guzman 07/31/2019 2:43 PM
[2019-07-31 14:47] LABS: AGAP 14; ALBUMIN 3.9 g/dL (3.5-5.0); ALKALINE PHOSPHATASE 109 U/L (32-122); BUN 26 mg/dL (8-22); CALCIUM 9.7 mg/dL (8.8-10.2); CHLORIDE 85 mmol/L (98-107); COSMO 284; CREATININE 1.3 mg/dL (0.7-1.2); ESTIMATED GFR > 60; GOT 34 U/L (10-34); GPT 33 U/L (10-44); POTASSIUM 5.1 mmol/L (3.5-5.1); SODIUM 121 mmol/L (136-145); TCO2 22 mmol/L (25-35); TOTAL PROTEIN 7.8 g/dL (6.3-8.3)
[2019-07-31 14:51] LABS: GLUCOSE 726 mg/dL (70-104)
[2019-07-31] MEDS ORDERED: KLOR-CON PO ONE (14:59)
--- NOTE | 2019-07-31 15:46 | EKG Report ---
Test Performed on : 07/31/2019 3:38:46 PM Test Reason : CP Blood Pressure : / mmHG Vent. Rate : 099 BPM Atrial Rate : 099 BPM P-R Int : 152 ms QRS Dur : 098 ms QT Int : 358 ms P-R-T Axes : 062 023 066 degrees QTc Int : 459 ms Normal sinus rhythm. Left atrial enlargement Borderline ECG When compared with ECG of 26-OCT-2017 14:10, No significant change was found Unconfirmed Result
[2019-07-31] MEDS ORDERED: HUMULIN R SUBQ ONE (16:55)
[2019-07-31] MEDS ORDERED: ZOFRAN IV PRN (18:28)
[2019-07-31] MEDS ORDERED: NS 1,000 ML IV SCH (18:30)
[2019-07-31] MEDS ORDERED: LOVENOX SUBQ SCH (18:30)
[2019-07-31] MEDS ORDERED: TESSALON PO PRN (18:43)
[2019-07-31 19:28] LABS: AGAP 10; BUN 25 mg/dL (8-22); CALCIUM 8.8 mg/dL (8.8-10.2); CHLORIDE 94 mmol/L (98-107); COSMO 284; CREATININE 1.1 mg/dL (0.7-1.2); ESTIMATED GFR > 60; GLUCOSE 460 mg/dL (70-104); POTASSIUM 4.8 mmol/L (3.5-5.1); SODIUM 129 mmol/L (136-145); TCO2 25 mmol/L (25-35)
[2019-07-31] MEDS: NICODERM PATCH TD SCH (19:42)
[2019-07-31] MEDS: ENTRESTO 49 MG-51 MG TABLET PO SCH (21:51)
[2019-07-31] MEDS: COREG PO SCH (21:51)
[2019-07-31] MEDS: LANTUS INSULIN SUBQ SCH (21:51)
[2019-07-31] MEDS: AUGMENTIN PO SCH (21:51)
[2019-07-31] MEDS: HUMALOG SUBQ SCH (21:52)
[2019-08-01] MEDS: HUMALOG SUBQ SCH ×4 (02:28→14:44)
--- NOTE | 2019-08-01 03:55 | HISTORY AND PHYSICAL ---
ATTENDING PHYSICIAN: Kaden Doherty MD. CHIEF COMPLAINT: Abnormal lab work. HISTORY OF PRESENT ILLNESS: This is a 39-year-old gentleman with a history of congestive heart failure followed by Dr. Hunter Ackerman, hypertension, schizophrenia, who presented to the emergency room after receiving a call from a walk-in clinic that he visited yesterday. Apparently, the patient was evaluated for cough, congestion, and vomiting about 3 days ago. He said they marilee labs. He was called by the physician about an hour prior to coming to the ER, told him that he had a blood sugar of 800, and he needed to come to the ER for further evaluation. The patient states that he has had fatigue and weight loss of about 15 pounds. He denies a prior diagnosis of diabetes or ever being told his blood sugar was elevated. Both his parents are diabetics and he thinks 1 of his siblings are. He does state that he has been drinking about 2 L of soda along with a gallon of milk a day over the last probably few weeks. PAST MEDICAL HISTORY: Schizophrenia, congestive heart failure, hypertension. PAST SURGICAL HISTORY: Tonsillectomy. ALLERGIES: No known drug allergies. HOME MEDICATIONS: Augmentin, Vyvanse, Entresto 49-51, and spironolactone. REVIEW OF SYSTEMS: Discussed with patient with pertinent positives stated in the HPI. He denied any syncope, any chest pain, palpitations, any shortness of breath, any nausea, vomiting, diarrhea, constipation, black or bloody vomitus or stools, hematuria, dysuria. PHYSICAL EXAMINATION: GENERAL: This is a 39-year-old gentleman who is sitting up on the bedside in the emergency room in no distress. VITAL SIGNS: Blood pressure is 118/73 with a heart rate of 99, respirations are 20, temperature is 98.5 degrees oral with room air saturations 97% to 98%. EYES: Pupils are equal, round, react to light. EOMs are intact. Sclerae are anicteric. HEENT: Head is normocephalic, atraumatic. Mucous membranes are moist. NECK: Supple with trachea midline. CARDIOVASCULAR: Regular rate and rhythm. S1 and S2 appreciated. He has no murmur. Calves are nontender bilaterally. Peripheral pulses palpable x4 extremities. PULMONARY: Breath sounds are clear with no increased work of breathing noted. Chest rises and falls symmetric to respiration. GASTROINTESTINAL: Abdomen is soft, nontender, nondistended. Bowel sounds in all 4 quadrants. GENITOURINARY: No CVA or suprapubic tenderness. NEUROLOGIC: He is alert and oriented x3. SKIN: Warm and dry. LABS: WBC is 17 with hemoglobin 16.9, hematocrit 48.1, and platelets 287,000. Sodium 121, potassium 5.1, BUN 26, creatinine 1.3. Glucose of 726. Urinalysis is essentially negative, with the exception of a glucose greater than 1000. Acetone is negative. Chest x-ray reveals no acute disease. ASSESSMENT AND PLAN: 1. Metabolic acidosis. 2. New diagnosis of diabetes mellitus type 2 with hyperglycemia. 3. History of congestive heart failure with an ejection fraction of 45% on echo in October 2017. 4. Leukocytosis. 5. Hyponatremia. Sodium is 121, but when corrected for blood glucose, sodium is 136. We will continue with his gentle IV hydration. 6. Recent upper respiratory infection. PLAN: The patient will be admitted to the hospital. He will be placed on telemetry. We will continue his home medications. He received 2 L bolus in the emergency room. We will continue with some gentle hydration at 75 mL/h. We will recheck a BMP now. Recheck a CBC, BMP, magnesium, and TSH in the morning. Consult dietitian for teaching. He will be placed on q.4 hours blood sugars with sliding scale insulin. We will start Lantus 10 units tonight. For DVT prophylaxis, will use Lovenox, and GI prophylaxis Prilosec. We will continue Augmentin that he was previously prescribed for upper respiratory infection, and give Tessalon Perles for cough. Plan was discussed with Dr. Mcfarland. Further treatments pending hospital course. Patient seen and examined by me face to face, all the laboratory, vitals signs and images were reviewed, patient presented to the emergency department as recommended by his Doctor, apparently he had some laboratory done and showed an elevated blood sugar, so he was told to come to the ED, he has been complaining of generalized weakness, fatigue, a little shortness of breath, polyuria, polydipsia, he has a history of CHF, and currently is getting treatment for a respiratory infection which I will continue, he will be placed on insulin, diabetes education, IV fluids, I agree with the CULLET WASHER's assessment and plan, Kaden Do MD. Dictated by HENRRY Penn for Kaden Doherty MD cc: HENRRY Penn MD [facility]
[2019-08-01] MEDS: COREG PO SCH ×2 (06:49→09:48)
[2019-08-01] MEDS ORDERED: PRILOSEC PO SCH (07:00)
[2019-08-01 07:49] LABS: BASO% 0.8 % (0.0-0.8); EOS# 0.62 X1000 (0.0-0.7); EOS% 4.7 % (0.0-10.0); HEMATOCRIT 46.4 % (42.0-52.0); HEMOGLOBIN 16.2 g/dL (14.0-18.0); IMM GRAN# 0.04 X1000 (0.0-0.04); IMM GRAN% 0.3 % (0.0-0.5); LYMPH# 3.93 X1000 (1.2-3.4); LYMPH% 29.9 % (20.5-51.1); MCH 29.9 PG (27-31); MCHC 34.9 g/dL (33-37); MCV 85.8 FL (81-99); MONO# 0.78 X1000 (0.11-0.59); MONO% 5.9 % (1.7-9.3); MPV 12.2 FL (7.4-10.4); NEUT# 7.68 X1000 (1.4-6.5); NEUT% 58.4 % (42.2-75.2); PLT 236 X1000 (130-400); RBC 5.41 XMIL (4.7-6.1); RDW 12.8 % (11.5-14.5); WBC 13.15 X1000 (4.8-10.8)
[2019-08-01 08:21] LABS: AGAP 10; BUN 20 mg/dL (8-22); CALCIUM 9.1 mg/dL (8.8-10.2); CHLORIDE 98 mmol/L (98-107); COSMO 276; CREATININE 1.1 mg/dL (0.7-1.2); ESTIMATED GFR > 60; GLUCOSE 218 mg/dL (70-104); POTASSIUM 4.4 mmol/L (3.5-5.1); SODIUM 133 mmol/L (136-145); TCO2 25 mmol/L (25-35)
[2019-08-01] MEDS ORDERED: ALDACTONE PO SCH (09:00)
[2019-08-01] MEDS: ENTRESTO 49 MG-51 MG TABLET PO SCH (09:48)
[2019-08-01] MEDS: AUGMENTIN PO SCH (09:49)
[2019-08-01] MEDS: NICODERM PATCH TD SCH (09:49)
[2019-08-01] MEDS: LANTUS INSULIN SUBQ SCH (09:53)
[2019-08-01 12:03] VITALS: BP 131/89
--- NOTE | 2019-08-02 14:41 | DISCHARGE SUMMARY ---
ADMISSION DATE: 07/31/2019 DISCHARGE DATE: 08/01/2019 DISCHARGE DIAGNOSES: 1. New onset type 2 diabetes with hyperglycemia. 2. History of congestive heart failure with an ejection fraction of 45%. 3. Metabolic acidosis resolved. 4. Pseudohyponatremia. 5. Cough, nausea, likely bronchitis. PROCEDURES PERFORMED: Chest x-ray dated 07/31/2019, impression: No acute disease. HOSPITAL COURSE: A 39-year-old male past medical history of CHF, followed by Dr. uHnter Ackerman, hypertension, schizophrenia, who presented to the emergency department after receiving a call from a walk-in clinic that he visited the day before yesterday. He was admitted on 07/31/2019. Apparently the patient was evaluated for cough, congestion and upper respiratory infection, and vomiting about 3 days ago. They marilee some labs and he was called by the physician prior to this admission to come to the ER because his blood sugar was around 800. The patient states that he has been having fatigue and weight loss of about 15 pounds. Also complaining of polydipsia and polyuria. He denied any diagnosis of diabetes before, but both parents are diabetics and probably 1 of the siblings. He was dehydrated and he received IV fluids, gentle because of his CHF. We will continue with his home medications as well. He came in with an acute kidney injury, but this resolved. His initial blood sugar was around 726, today around 218. We started this patient on a long-acting insulin and it seems to be working fine. I will discharge this patient today. He is asymptomatic. He is not having any kind of pain. He is tolerating p.o. and ambulating, completely alert and oriented x3. No focal deficits. He will need to follow up with his primary doctor in 1 week. I gave him a prescription for a glucometer and also I instructed the patient to monitor his blood sugar before meals and before bed and take a note of those results so he can discuss with his doctor. He will not only be discharged on insulin, he will also receive a prescription for metformin. Again this patient is stable medical condition, tolerating p.o., ambulating. Blood sugar better controlled. He will continue with antibiotics provided by his previous doctor. PHYSICAL EXAMINATION: Temperature 97.8 degrees, pulse 87, respiratory rate 20, blood pressure 131/89 oxygen saturation 100% on room air. HEENT: Head normocephalic, no trauma. PERRLA. Neck: Is supple. No JVD. No masses. Central trachea. Chest: Clear to auscultation. No wheezing. No rales. Abdomen: Soft, nontender, nondistended. No hepatosplenomegaly. Obese. Extremities: Trace edema. No clubbing. No cyanosis. Neurological: The patient is alert. He is oriented x3. No focal neurological deficits. LABORATORY: WBC 13.1, hemoglobin 16.2, hematocrit 46.4, and platelets 236,000. Sodium 133, potassium 4.4, chloride 98, bicarbonate 25, BUN 20, creatinine 1.1, glucose 218, calcium 9.1, magnesium 2.0. DISCHARGE MEDICATIONS: 1. Augmentin. He will continue taking this medication per his primary care doctor 1 tablet p.o. b.i.d. 2. Tessalon 200 mg p.o. t.i.d. as needed. 3. Carvedilol 1 tablet p.o. b.i.d. 6.25 mg. 4. Lantus 15 units q.a.m. 5. Vyvanse 1 tablet p.o. daily, 70 mg capsule. 6. Metformin 500 mg p.o. twice a day. He will start with 500 daily and then after a week, he will increase the dose to twice a day. 7. Zofran 1 tablet p.o. as needed. 8. Entresto 49/51 mg tablet 1 tablet p.o. b.i.d. 9. Spironolactone 1 tablet p.o. daily, 25 mg. cc: Kaden Doherty MD
== END 2019-08-01 15:50 | disposition home or self-care (01) ==
LOC: ED 13:41 → INTOOBSV 20:05 → 3N 20:05
PROVIDERS: ATTEND Internal Medicine